=== PATIENT | female | born 1970 | race Caucasian/White ===

== ENCOUNTER 2017-01-09 23:11 | Emergency (ER) | payer OTHER ==
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
[2017-01-10 02:03] VITALS: BP 131/85
== END 2017-01-10 02:03 | disposition home or self-care (01) ==
LOC: ER 23:11
DX: M54.5 Low back pain (principal); Y04.8XXA Assault by other bodily force, initial encounter; F17.200 Nicotine dependence, unspecified, uncomplicated; Z90.710 Acquired absence of both cervix and uterus; Z88.2 Allergy status to sulfonamides; Z90.49 Acquired absence of other specified parts of digestive tract
CPT/HCPCS: 72110; 72220; 99284

== ENCOUNTER 2017-07-19 06:38 | Emergency (ER) | payer OTHER ==
[2017-07-19] MEDS ORDERED: CLINDAMYCIN HCL 150 MG CAPSULE PO ONE (08:15)
[2017-07-19] MEDS ORDERED: BUPIVACAINE HCL 0.5%-EPI 1:200000 INJ/PF 30 ML VIAL INJ ONE (08:15)
--- NOTE | 2017-07-19 09:58 | ER Document Report ---
ED General - General Chief Complaint: Mouth Problem Stated Complaint: POSSIBLE ABCESS Time Seen by Provider: 07/19/17 08:34 TRAVEL OUTSIDE OF THE [place]. IN LAST 30 DAYS: No - HPI Patient complains to provider of: Dental abscess Notes: Patient coming in with lower jaw swelling ongoing for approximately 1 week patient has a history of orientation states has a appointment to see a dentist however swelling became worse therefore came to the ER for further evaluation. Patient denies any difficulty breathing swallowing - Related Data Allergies/Adverse Reactions: Sulfa (Sulfonamide Antibiotics) Adverse Reaction (Severe, Verified 07/19/17 06: 58) Past Medical History - Social History Smoking Status: Unknown if Ever Smoked Family History: Reviewed & Not Pertinent Patient has suicidal ideation: No Patient has homicidal ideation: No Neurological Medical History: Reports: Hx Migraine Renal/ Medical History: Denies: Hx Peritoneal Dialysis Musculoskeltal Medical History: Reports Hx Arthritis - rheumatoid Psychiatric Medical History: Reports: Hx Depression Past Surgical History: Reports: Hx Section, Hx Cholecystectomy, Hx Hysterectomy - Immunizations Hx Diphtheria, Pertussis, Tetanus Vaccination: Yes Review of Systems - Review of Systems Constitutional: No symptoms reported EENT: Other - Dental abscess Cardiovascular: No symptoms reported Respiratory: No symptoms reported Gastrointestinal: No symptoms reported Genitourinary: No symptoms reported Female Genitourinary: No symptoms reported Musculoskeletal: No symptoms reported Skin: No symptoms reported Hematologic/Lymphatic: No symptoms reported Neurological/Psychological: No symptoms reported -: Yes All other systems reviewed and negative Physical Exam - Vital signs Vitals: Temp Pulse Resp BP Pulse Ox 98.4 F 83 16 138/77 H 99 07/19/17 06:55 07/19/17 06:55 07/19/17 06:55 07/19/17 06:55 07/19/17 06:55 Interpretation: Normal - General General appearance: Appears well, Alert - HEENT Head: Normocephalic, Atraumatic Eyes: Normal Pupils: PERRL Notes: Patient with a obvious dental abscess at tooth #20 - Respiratory Respiratory status: No respiratory distress Chest status: Nontender Breath sounds: Normal Chest palpation: Normal - Cardiovascular Rhythm: Regular Heart sounds: Normal auscultation Murmur: No - Abdominal Inspection: Normal Distension: No distension Bowel sounds: Normal Tenderness: Nontender Organomegaly: No organomegaly - Back Back: Normal, Nontender - Extremities General upper extremity: Normal inspection, Nontender, Normal color, Normal ROM , Normal temperature General lower extremity: Normal inspection, Nontender, Normal color, Normal ROM , Normal temperature, Normal weight bearing. No: Amber's sign - Neurological Neuro grossly intact: Yes Cognition: Normal Orientation: AAOx4 Crapo Coma Scale Eye Opening: Spontaneous Joyce Coma Scale Verbal: Oriented Crapo Coma Scale Motor: Obeys Commands Crapo Coma Scale Total: 15 Speech: Normal Motor strength normal: LUE, RUE, LLE, RLE Sensory: Normal - Psychological Associated symptoms: Normal affect, Normal mood - Skin Skin Temperature: Warm Skin Moisture: Dry Skin Color: Normal Course - Re-evaluation Re-evalutation: 07/19/17 14:07 Patient with dental abscess at tooth #20 dental block was performed an I&D with drainage of pus patient was started on clindamycin and given dental clinic follow-up. - Vital Signs Vital signs: Temp Pulse Resp BP Pulse Ox 98.3 F 77 18 157/74 H 100 07/19/17 10:05 07/19/17 10:05 07/19/17 10:05 07/19/17 10:05 07/19/17 10:05 Procedures - Incision and Drainage Left Face Type: Simple Anesthetic type: 1% Lidocaine mL's of anesthetic: 2 Incision Method: Incision made by scalpel Amount/type of drainage: Scant amount of blood and pus Mouth/Teeth picture: 1 - Site of dental abscess - Additional Procedures dental block Notes: 07/19/17 14:09 Inferior alveolar dental block was performed using 0.5% Sensorcaine with epi. 25-gauge needle was inserted and the posterior gumline with no aspiration of blood instilled 2.5 cc of Marcaine good analgesia performed patient tolerated well Discharge - Discharge Clinical Impression: Dental abscess Condition: Good Disposition: HOME, SELF-CARE Instructions: Dentist, Dental Infection or Abscess ([facility]), Oral Narcotic Medication ([facility]) Additional Instructions: Follow-up with dentist provided. Take medications as prescribed. Return to ER symptoms worsen. Prescriptions: Clindamycin HCl [Cleocin 150 mg Capsule] 150 mg PO Q6 #40 capsule Hydrocodone Bit/Acetaminophen [Hydrocodon-Acetaminophen 5-325] 1 each PO Q6 #30 tablet Forms: Return to Work
[2017-07-19 10:08] VITALS: BP 157/74
== END 2017-07-19 10:08 | disposition home or self-care (01) ==
LOC: ER 06:38
PROC: 0H91XZZ Drainage of Face Skin, External Approach (ICD-10-PCS; principal; 2017-07-19)
PROC: 3E0T3BZ Introduction of Anesthetic Agent into Peripheral Nerves and Plexi, Percutaneous Approach (ICD-10-PCS; 2017-07-19)
DX: K04.7 Periapical abscess without sinus (principal); R22.0 Localized swelling, mass and lump, head
CPT/HCPCS: 99283; 10060; 64400; J3490

== ENCOUNTER 2018-08-03 09:32 | Emergency (ER) | payer OTHER ==
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
[2018-08-03] MEDS ORDERED: METOCLOPRAMIDE HCL INJ/PF 10 MG/2 ML SDV IV ONE (10:48)
[2018-08-03] MEDS ORDERED: DIPHENHYDRAMINE HCL 50 MG/ML VIAL IV ONE (10:48)
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
[2018-08-03 10:54] LABS: ABSOLUTE EOSINOPHILS # (AUTO) 0.1 10^3/uL (0.0-0.6); ABSOLUTE MONOCYTES (AUTO) 0.3 10^3/uL (0.1-1.4); ABSOLUTE NEUT (AUTO) 2.5 10^3/uL (1.7-8.2); BASOPHILS % (AUTO) 0.7 % (0-2); EOSINOPHILS % (AUTO) 2.9 % (0-6); HEMATOCRIT 43.6 % (36.0-47.0); LYMPHOCYTES % (AUTO) 25.8 % (13-45); MEAN CORPUSCULAR HEMOGLOBIN 33.2 pg (27.0-33.4); MEAN CORPUSCULAR HGB CONC 34.3 g/dL (32.0-36.0); MEAN CORPUSCULAR VOLUME 97 fl (80-97); MONOCYTES % (AUTO) 7.9 % (3-13); PLATELET COUNT 164 10^3/uL (150-450); RED CELL DISTRIBUTION WIDTH 14.1 % (11.5-14.0); SEGMENTED NEUTROPHILS % (AUTO) 62.7 % (42-78); TOTAL CELLS COUNTED % (AUTO) 100 %
[2018-08-03 11:37] LABS: AMORPHOUS SEDIMENT,URINE TRACE /HPF; APPEARANCE,URINE CLEAR; BILIRUBIN,URINE NEGATIVE (NEGATIVE); COLOR,URINE STRAW; GLUCOSE, URINE NEGATIVE (NEGATIVE); KETONES,URINE NEGATIVE (NEGATIVE); LEUKOCYTE ESTERASE,URINE NEGATIVE (NEGATIVE); NITRITE,URINE NEGATIVE (NEGATIVE); PROTEIN,URINE NEGATIVE (NEGATIVE); URINE SPECIFIC GRAVITY 1.013; UROBILINOGEN,URINE NEGATIVE mg/dL (<2.0)
[2018-08-03 11:37] LABS: ALANINE AMINOTRANSFERASE 175 U/L (9-52); ALBUMIN 4.7 g/dL (3.5-5.0); ALKALINE PHOSPHATASE 125 U/L (38-126); ANION GAP 11 (5-19); ASPARTATE AMINO TRANSFERASE 145 U/L (14-36); BILIRUBIN,DIRECT 0.3 mg/dL (0.0-0.4); BILIRUBIN,TOTAL 0.6 mg/dL (0.2-1.3); BLOOD UREA NITROGEN 16 mg/dL (7-20); CALCIUM 10.1 mg/dL (8.4-10.2); CARBON DIOXIDE 27 mmol/L (22-30); CHLORIDE 102 mmol/L (98-107); GLUCOSE 92 mg/dL (75-110); LIPASE 146.9 U/L (23-300); POTASSIUM 4.8 mmol/L (3.6-5.0); SODIUM 139.5 mmol/L (137-145); TOTAL PROTEIN 8.7 g/dL (6.3-8.2)
[2018-08-03] MEDS ORDERED: MORPHINE SULFATE 10 MG/ML INJ IV ONE (12:27)
--- NOTE | 2018-08-03 14:03 | RADIOLOGY REPORT (SQ) ---
EXAM DESCRIPTION: CT ABD/PELVIS WITH IV ORAL COMPLETED DATE/TIME: 08/03/2018 1:35 pm REASON FOR STUDY: left lower abdominal pain COMPARISON: None. TECHNIQUE: CT scan of the abdomen and pelvis performed using helical scanning technique with dynamic intravenous contrast injection. No oral contrast. Images reviewed with lung, soft tissue, and bone windows. Reconstructed coronal and sagittal MPR images reviewed. Delayed images for evaluation of the urinary system also acquired. All images stored on PACS. All CT scanners at this facility use dose modulation, iterative reconstruction, and/or weight based d osing when appropriate to reduce radiation dose to as low as reasonably achievable (ALARA). [facility]: Dose Right [facility]: CareDose [facility]: Dose Right [facility]: Teradose 4D [facility]: Keyade CONTRAST TYPE AND DOSE: contrast/concentration: Isovue 350.00 mg/ml; Total Contrast Delivered: 70.0 ml; Total Saline Delivered: 66.0 ml RENAL FUNCTION: Not specified. RADIATION DOSE: CT Rad equipment meets quality standard of care and radiation dose reduction techniq ues were employed. CTDIvol: 6.4 - 8.7 mGy. DLP: 747 mGy-cm.. LIMITATIONS: None. FINDINGS: LOWER CHEST: No significant findings. No nodules or infiltrates. LIVER: No abnormality. SPLEEN: No abnormality. PANCREAS: No abnormality. GALLBLADDER: Status post cholecystectomy. Post cholecystectomy prominence of common bile duct. ADRENAL GLANDS: No abnormality. RIGHT KIDNEY AND URETER: No abnormality. LEFT KIDNEY AND URETER: No abnormality. AORTA AND VESSELS: No abnormality. RETROPERITONEUM: No retroperitoneal adenopathy, hemorrhage or masses. BOWEL AND PERITONEAL CAVITY: No masses or inflammatory changes. No free fluid or peritoneal masses. APPENDIX: No abnormality. PELVIS: Status post hysterectomy. Urinary bladder: No abnormality. ABDOMINAL WALL: No masses. No hernias. BONES: Degenerative spondylosis of the L5-S1. At L5-S1 ,degenerated circumferential bulging disc. F oraminal narrowing on the right at L5-S1. IMPRESSION: NO SIGNIFICANT OR ACUTE FINDING IN THE ABDOMEN OR PELVIS ON CT SCAN WITH IV CONTRAST. TECHNICAL DOCUMENTATION: JOB ID: [id number]-69 Quality ID # [id number]: Final reports with documentation of one or more dose reduction techniques (e.g., Au tomated exposure control, adjustment of the mA and/or kV according to patient size, use of iterative reconstruction technique) 2010 [employer]- All Rights Reserved Reading location - IP/workstation name: [email or web address]
[2018-08-03] MEDS ORDERED: ONDANSETRON ODT 4 MG TAB (6 TAB/ER DISP) PO PRN (16:20)
[2018-08-03 16:40] VITALS: BP 123/67
== END 2018-08-03 16:42 | disposition home or self-care (01) ==
LOC: ER 09:32
DX: R10.84 Generalized abdominal pain (principal); R10.814 Left lower quadrant abdominal tenderness; R11.2 Nausea with vomiting, unspecified; R51 Headache; F17.210 Nicotine dependence, cigarettes, uncomplicated; Z88.8 Allergy status to other drugs, medicaments and biological substances
CPT/HCPCS: 99283; 96374; 96375; 36415; 83690; 85025; 80053; 81001; 74177; J2765; J2270

== ENCOUNTER 2020-12-22 14:09 | Emergency (ER) | payer OTHER ==
--- NOTE | 2020-12-22 14:27 | ER Document Report ---
ED Medical Screen (RME) - General Chief Complaint: Mouth Problem Stated Complaint: MOUTH/TONGUE PAIN Time Seen by Provider: 12/22/20 14:16 TRAVEL OUTSIDE OF THE [place] IN LAST 30 DAYS: No - HPI Notes: 12/22/20 14:24 50-year-old female presents to ED for evaluation of swelling to the anterior aspect of her neck and lower dentition. Patient reports this been going on 2 weeks. Also reports increased shortness of breath for the last 5 days. Patient reports that she has swelling underneath her soft palate. Reports that she is having increasing snoring as well. She was seen at urgent care and sent here for further evaluation. - Related Data Allergies/Adverse Reactions: petrolatum,white [From Vaseline] Allergy (Verified 12/22/20 14:13) Sulfa (Sulfonamide Antibiotics) Adverse Reaction (Severe, Verified 12/22/20 14:13) Past Medical History - Social History Chew tobacco use (# tins/day): No Frequency of alcohol use: None Drug Abuse: Marijuana Neurological Medical History: Reports: Hx Migraine Renal/ Medical History: Denies: Hx Peritoneal Dialysis Musculoskeltal Medical History: Reports Hx Arthritis - rheumatoid Psychiatric Medical History: Reports: Hx Depression Past Surgical History: Reports: Hx Section, Hx Cholecystectomy, Hx Hysterectomy - Immunizations Hx Diphtheria, Pertussis, Tetanus Vaccination: Yes Physical Exam - Vital signs Vitals: Temp 98.8 F 12/22/20 14:13 General appearance: No acute distress. Awake, alert and oriented x3 Skin: Intact. No pallor or jaundice. HEENT: Symmetric, no facial swelling. Eyes pupils equal, round and reactive to light and accommodation. Extraoccular movements are intact. Dentition is poor. Swelling under soft palet. No trismus noted. Pharynx without erythema, edema, or exudates. No tonsillar enlargement. Uvula is midline. Airway is patent. Neck: Symmetric bilateral anterior swelling. No lymphadenopathy or masses. Lungs: Clear to auscultation bilaterally. No wheezes, rhonchi or rales. Neurologic: CN II-XII intact. GCS 15. Course - Vital Signs Vital signs: Temp Pulse Resp BP Pulse Ox 98.8 F 12/22/20 14:13
[2020-12-22 15:00] LABS: ABSOLUTE BASOPHILS # (AUTO) 0.1 10^3/uL (0.0-0.2); ABSOLUTE EOSINOPHILS # (AUTO) 0.1 10^3/uL (0.0-0.6); ABSOLUTE LYMPHOCYTES (AUTO) 1.3 10^3/uL (0.5-4.7); ABSOLUTE MONOCYTES (AUTO) 0.4 10^3/uL (0.1-1.4); ABSOLUTE NEUT (AUTO) 4.7 10^3/uL (1.7-8.2); EOSINOPHILS % (AUTO) 1.9 % (0-6); HEMATOCRIT 43.1 % (36.0-47.0); HEMOGLOBIN 14.6 g/dL (12.0-15.5); LYMPHOCYTES % (AUTO) 20.1 % (13-45); MEAN CORPUSCULAR HEMOGLOBIN 31.6 pg (27.0-33.4); MEAN CORPUSCULAR HGB CONC 33.9 g/dL (32.0-36.0); MEAN CORPUSCULAR VOLUME 93 fl (80-97); MONOCYTES % (AUTO) 6.3 % (3-13); PLATELET COUNT 183 10^3/uL (150-450); RED BLOOD COUNT 4.62 10^6/uL (3.72-5.28); RED CELL DISTRIBUTION WIDTH 13.7 % (11.5-14.0); SEGMENTED NEUTROPHILS % (AUTO) 70.7 % (42-78); TOTAL CELLS COUNTED % (AUTO) 100 %; WHITE BLOOD COUNT 6.6 10^3/uL (4.0-10.5)
[2020-12-22 15:20] LABS: ALBUMIN 4.8 g/dL (3.5-5.0); ALKALINE PHOSPHATASE 141 U/L (38-126); ANION GAP 10 (5-19); ASPARTATE AMINO TRANSFERASE 130 U/L (14-36); BILIRUBIN,DIRECT 0.2 mg/dL (0.0-0.4); BILIRUBIN,TOTAL 0.5 mg/dL (0.2-1.3); BLOOD UREA NITROGEN 14 mg/dL (7-20); CALCIUM 9.7 mg/dL (8.4-10.2); CARBON DIOXIDE 26 mmol/L (22-30); CHLORIDE 103 mmol/L (98-107); GLUCOSE 104 mg/dL (75-110); POTASSIUM 4.2 mmol/L (3.6-5.0); TOTAL PROTEIN 8.7 g/dL (6.3-8.2)
--- NOTE | 2020-12-22 15:33 | RADIOLOGY REPORT (SQ) ---
EXAM DESCRIPTION: CT SOFT TISSUE NECK WITH IMAGES COMPLETED DATE/TIME: 12/22/2020 2:59 pm REASON FOR STUDY: sissy tabares COMPARISON: None. TECHNIQUE: Post IV contrasted scanning from skull base through lung apices with review of bone, soft tissue and lung windows. Reconstructed coronal and sagittal MPR images reviewed. All images stored on PACS. All CT scanners at this facility use dose modulation, iterative reconstruction, and/or weight based d osing when appropriate to reduce radiation dose to as low as reasonably achievable (ALARA). [facility]: Dose Right [facility]: CareDose [facility]: Dose Right [facility]: Teradose 4D [facility]: Xceleron (Chapter 11) CONTRAST TYPE AND DOSE: contrast/concentration: Isovue 350.00 mmol/ml; Total Contrast Delivered: 75. 0 ml; Total Saline Delivered: 29.4 ml RENAL FUNCTION: None required. The patient is less than 50 years old. RADIATION DOSE: CT Rad equipment meets quality standard of care and radiation dose reduction techniq ues were employed. CTDIvol: 18.4 mGy. DLP: 588 mGy-cm. . LIMITATIONS: Dental artifact. FINDINGS: SKULL BASE: Intact. MAJOR SALIVARY GLANDS: No solid or cystic masses. No inflammatory changes. LYMPHADENOPATHY: No adenopathy. MUCOSAL MASSES OR ASYMMETRY: No mucosal masses or asymmetry. LARYNX/CORDS: No abnormal findings. VASCULAR STRUCTURES: The major vessels are patent. LUNG APICES: Clear. BONES: Intact. THYROID: Normal size. No masses. PARANASAL SINUSES: Clear. OTHER: Generalized poor dentition with several missing teeth. Periapical lucency especially left low er molar tooth 19. IMPRESSION: Left tooth root abscess. No soft tissue abscess or airway obstruction. TECHNICAL DOCUMENTATION: JOB ID: [id number] Quality ID # [id number]: Final reports with documentation of one or more dose reduction techniques (e.g., Au tomated exposure control, adjustment of the mA and/or kV according to patient size, use of iterative reconstruction technique) 2010 [employer]- All Rights Reserved Reading location - IP/workstation name: [email or web address]
[2020-12-22] MEDS ORDERED: PENICILLIN V POTASSIUM 500 MG TABLET PO ONE (16:21)
--- NOTE | 2020-12-22 16:25 | ER Document Report ---
ED General - General Chief Complaint: Mouth Problem Stated Complaint: MOUTH/TONGUE PAIN Time Seen by Provider: 12/22/20 14:16 Notes: HPI: 50-year-old female presents with left lower jaw pain for around 2 to 3 days. Hurts when she bites or chews. She denies any facial swelling. She denies to me any neck swelling or tenderness. No difficulty breathing or swallowing. History of very poor dentition. She is nondiabetic. No fevers, vomiting, cough, shortness of breath on my exam. ROS: See HPI All other review of systems reviewed and otherwise negative Reviewed vital signs and nursing note as charted by RN. PHYSICAL EXAM: CONSTITUTIONAL: Alert and oriented and responds appropriately to questions. Well-appearing; well-nourished HEAD: Normocephalic; atraumatic EYES: PERRL; Conjunctivae clear, sclerae non-icteric ENT: Patient has extremely poor dentition especially the posterior molar region of the lower left side. No obvious anal or fluctuance or induration. Neck is soft and supple with full range of motion with no obvious cervical lymphadenopathy and no elevation of the tongue. No other obvious intraoral lesions present NECK: See above CARD: Regular rate and rhythm; no murmurs; symmetric distal pulses RESP: Normal chest excursion without splinting or tachypnea; breath sounds clear and equal bilaterally; no wheezing or stridor SKIN: No acute lesions noted NEURO: CN 2-12 intact PSYCH: The patient's mood and manner are appropriate. Grooming and personal hygiene are appropriate. TRAVEL OUTSIDE OF THE [place] IN LAST 30 DAYS: No - Related Data Allergies/Adverse Reactions: petrolatum,white [From Vaseline] Allergy (Verified 12/22/20 14:13) Sulfa (Sulfonamide Antibiotics) Adverse Reaction (Severe, Verified 12/22/20 14:13) Past Medical History - Social History Smoking Status: Current Every Day Smoker Chew tobacco use (# tins/day): No Frequency of alcohol use: None Drug Abuse: Marijuana Family History: Reviewed & Not Pertinent Patient has homicidal ideation: No Neurological Medical History: Reports: Hx Migraine Renal/ Medical History: Denies: Hx Peritoneal Dialysis Musculoskeletal Medical History: Reports Hx Arthritis - rheumatoid Psychiatric Medical History: Reports: Hx Depression Past Surgical History: Reports: Hx Section, Hx Cholecystectomy, Hx Hysterectomy - Immunizations Hx Diphtheria, Pertussis, Tetanus Vaccination: Yes Physical Exam - Vital signs Vitals: Temp 98.8 F 12/22/20 14:13 Course - Re-evaluation Re-evalutation: 12/22/20 16:22 Given the above history and physical, labs and imaging ordered in triage to evaluate the possibility of an intraoral or soft tissue abscess. CT as recorded. Patient looks extraordinarily well with labs as recorded. I have provided penicillin and we have provided detailed list of outpatient dental follow-up to help expedite reevaluation. Strict return precautions have been explained. - Vital Signs Vital signs: Temp Pulse Resp BP Pulse Ox 98.8 F 93 15 153/97 H 98 12/22/20 14:14 12/22/20 14:14 12/22/20 15:02 12/22/20 14:14 12/22/20 15:02 - Laboratory Results Result Diagrams: 12/22/20 14:47 12/22/20 14:47 Laboratory Results Interpreted: 12/22/20 14:47 AST 130 H ALT 55 H Alkaline Phosphatase 141 H Total Protein 8.7 H Critical Laboratory Results Reviewed: No Critical Results - Radiology Results Critical Radiology Results Reviewed: No Critical Results Discharge - Discharge Clinical Impression: Dental abscess Condition: Good Disposition: HOME, SELF-CARE Instructions: Abscess ([facility]) Additional Instructions: Come back immediately for any increased pain, facial swelling, fevers or vomiting, difficulty breathing or swallowing, or any other acute problems. Please take 1 tablet by mouth twice daily for 10 days with follow-up with one of the outpatient dental follow-up as we have provided. You may take 400 mg of ibuprofen and 500 mg of Tylenol every 6 hours as needed for pain. Prescriptions: Penicillin V Potassium [Penicillin Vk 500 mg Tablet] 500 mg PO BID #20 tablet
[2020-12-22 16:42] VITALS: BP 116/72
--- NOTE | 2020-12-22 17:33 | EKG REPORT ---
SEVERITY:- ABNORMAL ECG - SINUS RHYTHM NON DIAGNOSTIC INFERIOR Q WAVES PROBABLE INFERIOR INFARCT, OLD : Confirmed by: Steve Healy MD 22-Dec-2020 17:32:37
== END 2020-12-22 16:42 | disposition home or self-care (01) ==
LOC: ER 14:09
DX: K04.7 Periapical abscess without sinus (principal); K13.79 Other lesions of oral mucosa; F17.200 Nicotine dependence, unspecified, uncomplicated; Z88.2 Allergy status to sulfonamides
CPT/HCPCS: 36415; 70491; 80053; 85025; 93005; 93010; 99285